=== PATIENT | female | born 1965 | race Caucasian/White ===

== ENCOUNTER 2024-06-20 17:55 | Emergency (ER) | payer MEDICAID ==
[2024-06-20 18:42] VITALS: BP 155/75; PULSE 85
[2024-06-20] MEDS: Sodium Chloride 0.9% 1,000 ML IV SCH (19:14)
[2024-06-20] MEDS: Ketorolac 30 MG/ML SDV IVPUSH ONE (19:14)
[2024-06-20] MEDS: droPERidol 5 MG/2 ML SDV IVPUSH ONE (19:15)
[2024-06-20] MEDS: diphenhydrAMINE 50 MG/ML SDV IVPUSH ONE (19:16)
[2024-06-20] MEDS: Sodium Chloride 0.9% 10 ML Syringe FLUSH PRN (19:36)
== END 2024-06-20 20:34 | disposition home or self-care (01) ==
LOC: JP.ED 17:55
DX: G43.909 Migraine, unspecified, not intractable, without status migrainosus (principal); Z88.0 Allergy status to penicillin; Z79.899 Other long term (current) drug therapy; Z90.710 Acquired absence of both cervix and uterus
CPT/HCPCS: 96374; 96375; 99283; J1200; J1790; J1885; J3490; J7030

== ENCOUNTER 2024-12-29 06:51 | Day surgery (SDC) | payer MEDICAID ==
[2024-12-29] MEDS ORDERED: Midazolam 1 MG/ML 2 ML SDV ONE (07:22)
[2024-12-29] MEDS ORDERED: fentaNYL 100 MCG/2 ML SDV ONE (07:22)
[2024-12-29] MEDS ORDERED: Propofol 200 MG/20 ML SDV ONE (07:22)
[2024-12-29 09:59] VITALS: BP 118/56; PULSE 92
[2024-12-29] MEDS: Lactated Ringers 1,000 ML IV SCH (09:59)
== END 2024-12-29 10:15 | disposition home or self-care (01) ==
LOC: JP.SDS 06:51
PROVIDERS: ATTEND Family Medicine
DX: Z12.11 Encounter for screening for malignant neoplasm of colon (principal); D12.3 Benign neoplasm of transverse colon; K21.9 Gastro-esophageal reflux disease without esophagitis; Z88.0 Allergy status to penicillin
CPT/HCPCS: 00811-QZ; 88305; J2250; J2704; J3010; J7120

== ENCOUNTER 2025-06-23 01:49 | Emergency (ER) | payer MEDICAID ==
[2025-06-23 02:06] VITALS: BP 146/73; PULSE 97
== END 2025-06-23 02:31 | disposition home or self-care (01) ==
LOC: JP.ED 01:49
DX: H10.13 Acute atopic conjunctivitis, bilateral (principal); K21.9 Gastro-esophageal reflux disease without esophagitis; Z79.899 Other long term (current) drug therapy; Z88.0 Allergy status to penicillin; Z88.8 Allergy status to other drugs, medicaments and biological substances; Z90.710 Acquired absence of both cervix and uterus; Z90.49 Acquired absence of other specified parts of digestive tract
CPT/HCPCS: 99283